=== PATIENT | male | born 1995 | race Caucasian/White ===

== ENCOUNTER 2018-11-22 00:33 | Emergency (ER) | payer OTHER ==
--- NOTE | 2018-11-22 01:44 | EDPHY ---
H & P Stated Complaint: R pointer finger lac Time Seen by Provider: 11/22/18 01:33 HPI/ROS: HPI: The patient presents with right index finger laceration which occurred just prior to arrival when he cut his finger on the lip of a beer can. He has had significant bleeding which he has not been able to control since this happened. He has no numbness or tingling to the digit. He is able to move it without difficulty. REVIEW OF SYSTEMS 10 systems were reviewed and negative with the exception of the elements mentioned in the history of present illness. PMHx: Healthy, college student TRAUMA PHYSICAL General Appearance: Alert, no distress Head: Atraumatic Skin: Right index finger with C-shaped laceration on the palmar aspect of the distal digit, full range of motion of the digit Neurological: normal sensory exam Source: Patient Exam Limitations: No limitations - Personal History Current Tetanus/Diphtheria Vaccine: Yes Current Tetanus Diphtheria and Acellular Pertussis (TDAP): Yes - Medical/Surgical History Hx Asthma: No Hx Chronic Respiratory Disease: No Hx Diabetes: No Hx Cardiac Disease: No Hx Renal Disease: No Hx Cirrhosis: No Hx Alcoholism: No Hx HIV/AIDS: No Hx Splenectomy or Spleen Trauma: No Other PMH: denies - Social History Smoking Status: Never smoked Constitutional: Initial Vital Signs Temperature (C) 36.6 C 11/22/18 00:36 Heart Rate 91 11/22/18 00:36 Respiratory Rate 16 11/22/18 00:36 Blood Pressure 135/90 H 11/22/18 00:36 O2 Sat (%) 97 11/22/18 00:36 O2 Delivery Mode Room Air Allergies/Adverse Reactions: No Known Allergies Allergy (Unverified 11/22/18 00:36) Home Medications: Medication Instructions Recorded NK [No Known Home Meds] 11/22/18 Medical Decision Making Procedures: LACERATION REPAIR Procedure: Laceration repair. Verbal consent was obtained from the patient. The C-shaped 4 cm laceration on the pad of the 4th index finger was anesthetized using a digital block of lidocaine 1% total of 2 mL injected. The wound was scrubbed, draped and explored to its base with a gloved finger. There were no deep structures involved. No tendon injury was identified. . The wound was repaired with 5-0 Prolene sutures, combination of horizontal mattress and simple interrupted.. The wound repair was simple. The procedure was performed by myself. Differential Diagnosis: 22-year-old healthy college student presents with right index finger laceration which occurred just prior to arrival when he cut his finger on a beer can. He does not have a foreign body sensation. He is neurovascularly intact. There is no tendon injury. Plan for laceration repair. Departure - Departure Disposition: Home, Routine, Self-Care Clinical Impression: Finger laceration Qualifiers: Encounter type: initial encounter Finger: index finger Damage to nail status: without damage Foreign body presence: without foreign body Laterality: right Qualified Code(s): S61.210A - Laceration without foreign body of right index finger without damage to nail, initial encounter Condition: Good Instructions: Finger Laceration (ED) Additional Instructions: Your stitches should be removed in 7 days on November 29. You can come to the emergency department for this and we can remove them free of charge. Referrals: [facility]r,. [Clinic] - As per Instructions
[2018-11-22 02:55] VITALS: BP 113/79
== END 2018-12-01 14:35 | disposition home or self-care (01) ==
PROC: 0HQFXZZ Repair Right Hand Skin, External Approach (ICD-10-PCS; principal; 2018-11-22)
DX: S61.210A Laceration without foreign body of right index finger without damage to nail, initial encounter (principal); W45.8XXA Other foreign body or object entering through skin, initial encounter